=== PATIENT | female | born 1960 | race Caucasian/White ===

== ENCOUNTER 2021-10-26 11:56 | Outpatient (CLI) | payer MEDICAID ==
[2021-10-26 12:51] LABS: BASOPHILS # (AUTO) 0.1 10^3/uL (0.0-0.1); BASOPHILS % (AUTO) 0.9 %; EOSINOPHILS # (AUTO) 0.1 10^3/uL (0.0-0.7); EOSINOPHILS % (AUTO) 0.9 %; HCT - HEMATOCRIT 39.6 % (37.0-47.0); HGB - HEMOGLOBIN 13.2 g/dL (12.0-16.0); LYMPHOCYTES # (AUTO) 1.8 10^3/uL (1.5-3.5); LYMPHOCYTES % (AUTO) 31.5 %; MEAN CORPUSCULAR HGB CONC 33.3 g/dL (32.0-36.0); MEAN PLATELET VOLUME 9.6 fL (7.9-10.8); MONOCYTES # (AUTO) 0.4 10^3/uL (0.0-1.0); MONOCYTES % (AUTO) 7.2 %; NEUTROPHILS # (AUTO) 3.3 10^3/uL (1.5-6.6); NEUTROPHILS % (AUTO) 59.3 %; PLT - PLATELET COUNT 212 10^3/uL (130-450); RED BLOOD COUNT 4.26 10^6/uL (4.20-5.40); RED CELL DISTRIBUTION WIDTH 12.4 % (12.0-15.0); WHITE BLOOD COUNT 5.6 x10^3/uL (4.8-10.8)
[2021-10-26 13:08] LABS: ALBUMIN/GLOBULIN RATIO 1.2 (1.0-2.2); ALKALINE PHOSPHATASE 78 IU/L (42-121); ALT ALANINE AMINOTRANSFERASE 17 IU/L (10-60); AST ASPARTATE AMINOTRANSFERASE 21 IU/L (10-42); BILIRUBIN,TOTAL 0.7 mg/dL (0.2-1.0); BUN - BLOOD UREA NITROGEN 14 mg/dL (6-20); CARBON DIOXIDE - CO2 28 mmol/L (21-32); CHLORIDE 104 mmol/L (101-111); CHOL/HDL RATIO 2.3 (<4.4); CHOLESTEROL 214 mg/dL; CREATININE 0.7 mg/dL (0.4-1.0); GFR - MDRD 85 (>89); GLUCOSE 102 mg/dL (70-100); HDL CHOLESTEROL 92 mg/dL; LDL CHOLESTEROL,CALCULATED 106 mg/dL; LDL/HDL RATIO 1.2 (<4.4); POTASSIUM 3.9 mmol/L (3.5-5.0); SODIUM 143 mmol/L (135-145); TOTAL PROTEIN 7.3 g/dL (6.7-8.2); TRIGLYCERIDES 80 mg/dL; VLDL CHOLESTEROL 16 mg/dL
[2021-10-26 13:17] LABS: CREATININE,URINE 84.1 mg/dL; ESTIMATED AVERAGE GLUCOSE 117 mg/dL (70-100); HEMOGLOBIN A1c% 5.7 % (4.27-6.07); MICROALBUM/CREATININE RATIO,UR 2.4 ug/mg (<30.0); MICROALBUMIN,URINE 0.2 mg/dL (0-300.0)
== END 2021-10-26 11:57 | disposition home or self-care (01) ==
LOC: LAB 11:56
DX: E11.9 Type 2 diabetes mellitus without complications (principal)
CPT/HCPCS: 36415; 80053; 80061; 82043; 82570; 83036; 83721; 85025

== ENCOUNTER 2022-07-29 15:18 | Emergency (ER) | payer MEDICAID ==
[2022-07-29 15:24] VITALS: BP 145/68
--- NOTE | 2022-07-29 15:44 | ED Physician Documentation ---
PD HPI HEENT - Stated complaint Stated Complaint: L SIDE FACE SWOLLEN - Chief complaint Chief Complaint: General - History obtained from History obtained from: Patient - History of Present Illness Timing - onset: Today Timing - details: Abrupt onset (she lay down for nap and awoke with left facial swelling of lips on left, cheek, and around to periauricular area. None on right . No noted pain, skin lesions, bites, etc. It is improving some enroute to ER.), Still present (though is decreasing slowly) Location: Other (left face and lips. Not noted swelling of tongue nor throat.) Improves: Other (seems to be improving with time enroute to ER.) Associated symptoms: Facial swelling (just left side). No: Fever, Congestion, Headache Similar symptoms before: Has not had sx before Recently seen: Not recently seen Review of Systems Constitutional: denies: Fever, Chills Nose: denies: Rhinorrhea / runny nose, Congestion Throat: denies: Sore throat Cardiac: denies: Chest pain / pressure Respiratory: denies: Dyspnea, Cough GI: denies: Nausea, Vomiting Skin: denies: Rash, Lesions Neurologic: denies: Focal weakness, Numbness PD PAST MEDICAL HISTORY - Past Medical History Cardiovascular: Hypertension Respiratory: None Neuro: None Endocrine/Autoimmune: Type 2 diabetes - Allergies Allergies/Adverse Reactions: Allergies Allergy/AdvReac Type Severity Reaction Status Date / Time cyclobenzaprine AdvReac Anxiety Verified 07/29/22 15:21 [From Flexeril] metformin AdvReac Anxiety Verified 07/29/22 15:21 oxycodone AdvReac Itching Verified 07/29/22 15:21 Sulfa (Sulfonamide AdvReac Anxiety Verified 07/29/22 15:21 Antibiotics) PD ED PE NORMAL - Vitals Vital signs reviewed: Yes - General General: Alert and oriented X 3, No acute distress, Well developed/nourished - HEENT HEENT: PERRL, EOMI, Pharynx benign (with perhaps mild uvular edema. Pallate normal. Tongue appears normal. ), Other (left face, outer lips and cheek with mild edema without redness/warmth nor skin lesions. ) - Neck Neck: Supple, no meningeal sign, No adenopathy - Cardiac Cardiac: RRR, No murmur - Respiratory Respiratory: Clear bilaterally - Derm Derm: Normal color, Warm and dry - Extremities Extremities: No edema - Neuro Neuro: Alert and oriented X 3, No motor deficit, No sensory deficit, Normal speech Results - Vitals Vitals: Vital Signs - 24 hr 07/29/22 15:21 Temperature 36.5 C Heart Rate 90 Respiratory 16 Rate Blood Pressure 145/68 H O2 Saturation 98 Oxygen O2 Source Room air PD MEDICAL DECISION MAKING - ED course Complexity details: considered differential (facial edema without obvious cause. No bites, stings, no bette meds/foods. She does take lisinopril for years without dose change, but still consider as possible related to unexplained angioedema. ), d/w patient Departure - Departure Disposition: 01 Home, Self Care Clinical Impression: Left facial swelling Angioedema Qualifiers: Encounter type: initial encounter Qualified Code(s): T78.3XXA - Angioneurotic edema, initial encounter Condition: Stable Record reviewed to determine appropriate education?: Yes Instructions: ED Angioedema Comments: Its unclear the cause of your symptoms. A local irritation such as a bug bite or such could cause localized swelling. Food or medication allergies may present more locally at times as well. 1 concern would be a reaction to your blood pressure medicine. SUNITA inhibitor such as your lisinopril can cause abrupt swelling of the mouth, lips, face even if you have been on the medicine for a while. Given the lack of a clear cause for this current episode, I would suggest stopping your lisinopril until further discussion with your primary care. Continue with your antihistamines as usual. We did a single dose of a steroid here today that should last for couple of days. See if this continues to improve and is better. Discussed with your family doctor whether to change to a different blood pressure medicine just for the small chance of the reaction to that. Return or recheck if worsening again or if not resolved over the next several days. Discharge Date/Time: 07/29/22 16:15
[2022-07-29] MEDS ORDERED: DEXAMETHASONE 10 MG/ML VIAL PO STA (16:09)
[2022-07-29] MEDS ORDERED: CHERRY SYRUP 10 ML UDC PO ONE (16:09)
== END 2022-07-29 16:15 | disposition home or self-care (01) ==
LOC: ED 15:18
DX: T78.3XXA Angioneurotic edema, initial encounter (principal); I10 Essential (primary) hypertension
CPT/HCPCS: 99282; 99283; A9270

== ENCOUNTER 2023-02-22 10:50 | Outpatient (CLI) | payer MEDICAID ==
[2023-02-22 11:16] LABS: ESTIMATED AVERAGE GLUCOSE 157 mg/dL (70-100); HEMOGLOBIN A1c% 7.1 % (4.27-6.07)
[2023-02-22 11:23] LABS: ALBUMIN 3.6 g/dL (3.2-5.5); ALKALINE PHOSPHATASE 80 IU/L (42-121); ALT ALANINE AMINOTRANSFERASE 34 IU/L (10-60); AST ASPARTATE AMINOTRANSFERASE 34 IU/L (10-42); BILIRUBIN,TOTAL 0.4 mg/dL (0.2-1.0); BUN - BLOOD UREA NITROGEN 14 mg/dL (6-20); CALCIUM 9.1 mg/dL (8.5-10.3); CARBON DIOXIDE - CO2 28 mmol/L (21-32); CHLORIDE 105 mmol/L (101-111); CHOL/HDL RATIO 2.7 (<4.4); CHOLESTEROL 170 mg/dL; CREATININE 0.8 mg/dL (0.4-1.0); GFR - MDRD 72 (>89); GLUCOSE 131 mg/dL (70-100); HDL CHOLESTEROL 64 mg/dL; LDL CHOLESTEROL,CALCULATED 84 mg/dL; LDL/HDL RATIO 1.3 (<4.4); POTASSIUM 3.6 mmol/L (3.5-5.0); SODIUM 142 mmol/L (135-145); TOTAL PROTEIN 7.1 g/dL (6.7-8.2); TRIGLYCERIDES 111 mg/dL; VLDL CHOLESTEROL 22 mg/dL
== END 2023-02-22 10:51 | disposition home or self-care (01) ==
LOC: LAB 10:50
PROVIDERS: ATTEND Family Medicine
DX: E11.9 Type 2 diabetes mellitus without complications (principal)
CPT/HCPCS: 36415; 80053; 80061; 83036; 83721

== ENCOUNTER 2024-03-13 19:46 | Emergency (ER) | payer MEDICARE, MEDICAID ==
--- NOTE | 2024-03-13 20:21 | ED Physician Documentation ---
PD HPI ABD PAIN - Stated complaint Stated Complaint: abdominal pain - Additional information Additional information: 63-year-old female with history of hypertension and type 2 diabetes presents emergency department for several hours of abdominal pain nausea vomiting diarrhea. She reports she was at home in her usual state of health and ate a donut around noon. About 30 min later she started to experience nausea, vomiting, diarrhea. She said she also started to experience SOA. She denies any known sick contacts and never experienced anything like this before. PD PAST MEDICAL HISTORY - Past Medical History Cardiovascular: Hypertension Respiratory: None Neuro: None Endocrine/Autoimmune: Type 2 diabetes - Present Medications Home Medications: Ambulatory Orders Medication Instructions Recorded Confirmed Aspirin [[place] Aspirin] 81 mg PO DAILY 03/14/24 03/14/24 Betamethasone Aug 0.05% Cream 0.05 % TOP DAILY 03/14/24 03/14/24 [Diprolene AF 0.05% Cream] Calcipotriene/Betamethasone 0.005 % TOP DAILY 03/14/24 03/14/24 [Calcipotriene-Betameth Dp Oint] Calcipotriene/Dressing [Trionex 0.005 - 0.064 % TOP DAILY 03/14/24 03/14/24 0.005% Kit] FLUoxetine [PROzac] 10 mg PO DAILY 03/14/24 03/14/24 Glipizide [Glipizide Xl] 5 mg PO DAILY 03/14/24 03/14/24 Ibuprofen [Motrin] 400 - 600 mg PO BID 03/14/24 03/14/24 Omeprazole 20 mg PO DAILY 03/14/24 03/14/24 Rosuvastatin Calcium 10 mg PO DAILY 03/14/24 03/14/24 Semaglutide [Rybelsus] 3 mg PO DAILY 03/14/24 03/14/24 Sitagliptin Phosphate [Januvia] 50 mg PO DAILY 03/14/24 03/14/24 Venlafaxine ER [Effexor ER] 75 mg PO BID 03/14/24 03/14/24 amLODIPine [Norvasc] 10 mg PO DAILY 03/14/24 03/14/24 - Allergies Allergies/Adverse Reactions: Allergies Allergy/AdvReac Type Severity Reaction Status Date / Time cyclobenzaprine AdvReac Anxiety Verified 03/13/24 20:39 [From Flexeril] metformin AdvReac Anxiety Verified 03/13/24 20:39 oxycodone AdvReac Itching Verified 03/13/24 20:39 Sulfa (Sulfonamide AdvReac Anxiety Verified 03/13/24 20:39 Antibiotics) PD ED PE NORMAL - Vitals Vital signs reviewed: Yes - General General: Alert and oriented X 3, No acute distress, Well developed/nourished - HEENT HEENT: Atraumatic - Cardiac Cardiac: RRR, No murmur, No gallop, Strong equal pulses - Respiratory Respiratory: No respiratory distress, Clear bilaterally - Abdomen Abdomen: Normal bowel sounds, Soft, Other (tenderness to mid-epigastric pain) - Back Back: No CVA TTP, No spinal TTP - Derm Derm: Normal color, Warm and dry, No rash - Extremities Extremities: No deformity, No edema - Neuro Neuro: Alert and oriented X 3, thread puller 2-12 intact, No motor deficit, No sensory deficit, Normal speech - Psych Psych: Normal mood, Normal affect Results - Vitals Vitals: Vital Signs - 24 hr 03/13/24 03/13/24 03/14/24 19:48 23:54 01:17 Temperature 36.5 C Heart Rate 100 110 H 110 H Respiratory 18 18 17 Rate Blood Pressure 144/81 H 157/90 H 160/84 H O2 Saturation 100 99 97 Oxygen O2 Source Room air - EKG (time done) 2012 EKG releavant findings:: EKG personally interpreted by author of this note. Relevant findings are: Rate: Rate (enter#) (108) Rhythm: Sinus tachycardia, NSR [place]: Normal Intervals: Normal MI QRS: Normal Ischemia: Normal ST segments Computer interpretation: Agree with computer - Labs Labs: Laboratory Tests 03/13/24 03/13/24 03/13/24 20:28 20:28 20:28 WBC 8.8 RBC 5.10 Hgb 14.8 Hct 43.2 MCV 84.7 MCH 29.0 MCHC 34.3 RDW 13.1 Plt Count 253 MPV 9.9 Neut # (Auto) 7.5 H Lymph # (Auto) 1.0 L [place] # (Auto) 0.2 Eos # (Auto) 0.1 Baso # (Auto) 0.0 Absolute Nucleated RBC 0.00 Nucleated RBC % 0.0 Sodium 138 Potassium 2.9 L Chloride 101 Carbon Dioxide 22 Anion Gap 15.0 H BUN 9 Creatinine 0.8 Estimated GFR (MDRD) 72 L Glucose 216 H Calcium 10.3 Magnesium 1.3 L Total Bilirubin 0.5 AST 29 ALT 42 Alkaline Phosphatase 101 Troponin I High Sens 3.6 Total Protein 7.7 Albumin 4.6 Globulin 3.1 Albumin/Globulin Ratio 1.5 Lipase 32 Urine Color Urine Clarity Urine pH Ur Specific [place] Urine Protein Urine Glucose (UA) Urine Ketones Urine Occult Blood Urine Nitrite Urine Bilirubin Urine Urobilinogen Ur Leukocyte Esterase Ur Microscopic Review Urine Culture Comments 03/13/24 20:30 WBC RBC Hgb Hct MCV MCH MCHC RDW Plt Count MPV Neut # (Auto) Lymph # (Auto) [place] # (Auto) Eos # (Auto) Baso # (Auto) Absolute Nucleated RBC Nucleated RBC % Sodium Potassium Chloride Carbon Dioxide Anion Gap BUN Creatinine Estimated GFR (MDRD) Glucose Calcium Magnesium Total Bilirubin AST ALT Alkaline Phosphatase Troponin I High Sens Total Protein Albumin Globulin Albumin/Globulin Ratio Lipase Urine Color YELLOW Urine Clarity CLEAR Urine pH 7.0 Ur Specific [place] 1.015 Urine Protein NEGATIVE Urine Glucose (UA) NEGATIVE Urine Ketones 15 H Urine Occult Blood TRACE-INTA Urine Nitrite NEGATIVE Urine Bilirubin NEGATIVE Urine Urobilinogen 0.2 (NORMAL) Ur Leukocyte Esterase NEGATIVE Ur Microscopic Review NOT INDICATED Urine Culture Comments NOT INDICATED PD Medical Decision Making - ED course ED course: 63 yo female here for sudden onset abdominal pain and SOA. Patient also reports that she started experiencing shortness of breath I considered pulmonary embolism although given symptoms I think this is very unlikely. In regards to patient's abdominal pain nausea vomiting diarrhea could be due to acid reflux, gastroenteritis, atypical appendicitis. Abdomen pelvis CT with con was ordered as well as a chest x-ray for further evaluation or shortness of breath and abdomen pelvis pain with her nausea vomiting diarrhea. These results had not yet resulted I gave report to Dr. Hiro Ramesh due to change of shift. Some labs have resulted she was found to have hypomagnesemia and hypokalemia these were both replaced prior to change of shift. Patient has been feeling better after receiving GI cocktail she has had no episodes of nausea or vomiting after receiving IV Zofran she is also been given a liter of IV fluids. Departure - Departure Disposition: 01 Home, Self Care Clinical Impression: Acid reflux, Vomiting, Abdominal pain, Hypokalemia Condition: Stable Instructions: LAURENCE Peck Comments: You were seen in the emergency department for vomiting and abdominal pain. Your CT and chest xray uncovered no emergent issues. Please follow-up with your primary care provider for referral to GI and return to the emergency department if you have any new or worsening symptoms or other concerns. Forms: PCP List Discharge Date/Time: 03/14/24 01:18
[2024-03-13 20:34] LABS: BASOPHILS % (AUTO) 0.3 %; EOSINOPHILS # (AUTO) 0.1 10^3/uL (0.0-0.7); EOSINOPHILS % (AUTO) 0.6 %; HCT - HEMATOCRIT 43.2 % (37.0-47.0); HGB - HEMOGLOBIN 14.8 g/dL (12.0-16.0); LYMPHOCYTES % (AUTO) 11.8 %; MEAN CORPUSCULAR HGB CONC 34.3 g/dL (32.0-36.0); MEAN CORPUSCULAR VOLUME 84.7 fL (81.0-99.0); MEAN PLATELET VOLUME 9.9 fL (7.9-10.8); MONOCYTES # (AUTO) 0.2 10^3/uL (0.0-1.0); MONOCYTES % (AUTO) 1.8 %; NEUTROPHILS # (AUTO) 7.5 10^3/uL (1.5-6.6); NEUTROPHILS % (AUTO) 85.2 %; PLT - PLATELET COUNT 253 10^3/uL (130-450); RED CELL DISTRIBUTION WIDTH 13.1 % (12.0-15.0); WHITE BLOOD COUNT 8.8 x10^3/uL (4.8-10.8)
[2024-03-13 20:37] LABS: BILIRUBIN,URINE NEGATIVE (NEGATIVE); GLUCOSE, URINE (UA) NEGATIVE (NEGATIVE); KETONES,URINE (UA) 15 mg/dL (NEGATIVE); LEUKOCYTE ESTERASE, URINE NEGATIVE (NEGATIVE); NITRITE,URINE NEGATIVE (NEGATIVE); OCCULT BLOOD,URINE TRACE-INTA (NEGATIVE); PROTEIN,URINE NEGATIVE (NEGATIVE); UROBILINOGEN,URINE 0.2 (NORMAL) E.U./dL (NORMAL)
[2024-03-13 20:41] LABS: CLARITY,URINE CLEAR (CLEAR)
[2024-03-13] MEDS ORDERED: iohexoL-300 100 ML VIAL ONE (20:56)
[2024-03-13] MEDS: ONDANSETRON 4 MG/2 ML VIAL IVP STA (20:59)
[2024-03-13 21:01] LABS: MAGNESIUM 1.3 mg/dL (1.7-2.3)
[2024-03-13 21:07] LABS: ALBUMIN 4.6 g/dL (3.2-5.5); ALBUMIN/GLOBULIN RATIO 1.5 (1.0-2.2); BILIRUBIN,TOTAL 0.5 mg/dL (0.2-1.0); CALCIUM 10.3 mg/dL (8.5-10.3); CREATININE 0.8 mg/dL (0.6-1.3); POTASSIUM 2.9 mmol/L (3.5-4.5); TOTAL PROTEIN 7.7 g/dL (6.4-8.9)
[2024-03-13] MEDS: MAG HYDROX/AL HYDROX/SIMETH 30 ML UDC PO STA (21:15)
[2024-03-13] MEDS: MAGNESIUM SULFATE 2 GRAM 2 GM/50 ML BAG IV ONE (21:20)
[2024-03-13] MEDS: POTASSIUM CHLORIDE 20 MEQ TABLET PO STA (21:20)
[2024-03-13] MEDS ORDERED: POTASSIUM CHLOR 10 MEQ/100 ML 10 MEQ/100 ML BAG IV SCH (22:00)
[2024-03-13] MEDS: SODIUM CHLORIDE 0.9% 1,000 ML IV ONE (22:03)
[2024-03-13] MEDS: METOCLOPRAMIDE 10 MG/2 ML VIAL IVP STA (22:34)
[2024-03-13] MEDS: iohexoL-300 100 ML VIAL IVP ONE (23:52)
--- NOTE | 2024-03-14 00:44 | XRAY Report ---
PROCEDURE: Chest 2V INDICATIONS: SOA TECHNIQUE: 2 views of the chest were acquired. COMPARISON: None. FINDINGS: Surgical changes and devices: None. Lungs and pleura: Mildly prominent interstitium with low lung volumes. No pleural effusions. Mediastinum: Normal heart size. Prominence of the right hilar structures. Bones and chest wall: Degenerative changes. Possible calcified structure in the left lower quadrant, better assessed on CT. IMPRESSION: Low lung volumes with prominence of the interstitium and right hilum, possibly edema or artifact of l ow lung volumes. No dense consolidation or pleural effusion. Consider future imaging surveillance to assess for resolution. Reviewed by: Jason Dickey MD on 03/14/2024 12:43 AM PDT Approved by: Jason Dickey MD on 03/14/2024 12:43 AM PDT Station ID: [id number]
--- NOTE | 2024-03-14 00:51 | CT Report ---
PROCEDURE: Abdomen/Pelvis W INDICATIONS: mid epigastric pain CONTRAST: Omni 300, 100mls TECHNIQUE: After the administration of intravenous contrast, a CT scan of the abdomen and pelvis was performed. Images were recorded and evaluated at appropriate window settings. Reformats: coronal and sagittal. F or radiation dose reduction, the following was used: automated exposure control, adjustment of mA and /or kV according to patient size. COMPARISON: None FINDINGS: Image quality: Diagnostic Lower chest: Lung bases appear unremarkable. Mildly patulous fluid-filled distal esophagus, nonspecif ic, commonly due to reflux Liver: Possible hepatic steatosis Gallbladder and biliary system: Gallbladder is unremarkable. No pathologic biliary dilation Pancreas: No ductal dilation Spleen: Likely chronic cystic structure with peripheral calcification measuring 6 cm. Adrenals: 1.3 cm left adrenal nodule. Kidneys: No solid mass or hydronephrosis Vessels and lymph nodes: Atherosclerotic calcifications. The main portal vein appears patent. No abdo heather aortic and rectum. No pathologic lymph nodes by size criteria Bowel and peritoneum: No evidence of small bowel obstruction. Colonic diverticula. No pathologic asci andre appendix is nondilated Body wall: Small fat-containing umbilical hernia. Pelvis: Mild asymmetric bladder wall thickening affecting the anterior portion. The bladder is not we ll evaluated due to underdistention. Prominent endometrium for age measuring 7 mm. Bones: There are degenerative changes. No acute or suspicious findings. IMPRESSION: No small bowel obstruction. Fluid and patulous appearance of the distal esophagus is nonspecific, mos t commonly due to reflux. Consider endoscopic correlation if needed. 6 cm chronic appearing cystic lesion in the spleen with peripheral calcifications, possibly congenita l or from prior injury or infection. In addition, 1.3 cm left adrenal nodule is most commonly an jh stefani. If clinically indicated, follow-up could be obtained with abdominal MRI. Prominent endometrium for age measuring 7 mm, correlate with any postmenopausal bleeding and possible pelvic ultrasound. Possible asymmetric bladder wall thickening, not well assessed due to underdistention. Cystoscopy cou ld further evaluate if needed. Other findings above. Reviewed by: Jason Dickey MD on 03/14/2024 12:50 AM PDT Approved by: Jason Dickey MD on 03/14/2024 12:50 AM PDT Station ID: [email or web address]
--- NOTE | 2024-03-14 01:11 | ED Physician Documentation ---
ED Addendum - Addendum Addendum: 03/14/24 01:09 Patient endorsed to me by daytime provider pending cxr and ct a/p results. 63yF p/w n/v and upper abdominal pain, improved s/p GI cocktail. Labwork looks pretty benign except for hypo K and hypo mg which the previous provider corrected with IV electrolytes. discussed incidental findings on CT with the patient. Plan is to f/u outpatient with her pcp for referral to [facility]/ return precautions given. Impression 1. nausea and vomiting 2. Abdominal pain Dispo home COndition stable
[2024-03-14 01:24] VITALS: BP 160/84; O2SAT 97
== END 2024-03-14 01:18 | disposition home or self-care (01) ==
LOC: ED 19:46
DX: K21.9 Gastro-esophageal reflux disease without esophagitis (principal); E87.6 Hypokalemia; I10 Essential (primary) hypertension; E11.9 Type 2 diabetes mellitus without complications; Z79.82 Long term (current) use of aspirin; Z79.4 Long term (current) use of insulin
CPT/HCPCS: 36415; 71046; 74177; 80053; 81003; 83690; 83735; 84484; 85025; 93005; 96365; 96375; 99284; A9270; J2765; Q9967; 81001; 87086